=== PATIENT | male | born 1955 | race Two or more races ===

== ENCOUNTER 2023-05-23 10:55 | Emergency (ER) | payer OTHER ==
[~2023-05-23] VITALS: Ht 160 cm; Wt 76.2 kg
[2023-05-23] MEDS ORDERED: SYNTHROID112 MCG PO (10:57)
[2023-05-23] MEDS ORDERED: JANUVIA50 MG PO (10:58)
[2023-05-23] MEDS ORDERED: JARDIANCE10 MG PO (10:58)
[2023-05-23] MEDS ORDERED: ESCITALOPRA5 MG/5 ML (10:59)
[2023-05-23] MEDS ORDERED: MEMANTINE HCL10 MG PO (11:00)
[2023-05-23] MEDS ORDERED: CRESTOR20 MG PO (11:00)
[2023-05-23] MEDS ORDERED: ARICEPT5 MG PO (11:00)
[2023-05-23 13:31] LABS: PH,URINE 5.5 (5.0-8.0); URINE APPEARANCE Clear; URINE BILIRRUBIN Negative (NEGATIVE); URINE BLOOD Trace; URINE COLOR Yellow; URINE LEUKOCYTE Negative; URINE NITRATE Negative; URINE PROTEIN Negative (NEGATIVE); URINE UROBILINOGEN 0.2 E.U./dl
[2023-05-23 13:32] LABS: URINE WBC 2.6 uL (0.0-23.2)
[2023-05-23 13:37] LABS: URINE BACTERIA 1.2 uL (0.0-1933); URINE EPITHELIAL CELLS 0.9 uL (0.0-38.8); URINE GLUCOSE >=1000 MG/DL (NEGATIVE)
== END 2023-05-23 16:00 | disposition home or self-care (01) ==
LOC: ER 10:55
PROVIDERS: Emergency Medicine
DX: M47.816 Spondylosis without myelopathy or radiculopathy, lumbar region (principal); M19.90 Unspecified osteoarthritis, unspecified site; E11.9 Type 2 diabetes mellitus without complications; Z79.84 Long term (current) use of oral hypoglycemic drugs; I10 Essential (primary) hypertension; Z86.79 Personal history of other diseases of the circulatory system
CPT/HCPCS: 72100; 96372; 99284; J1885